=== PATIENT | male | born 1955 | race Caucasian/White ===

== ENCOUNTER 2022-04-09 23:41 | Emergency (ER) | payer MEDICARE, OTHER ==
[~2022-04-09] VITALS: Ht 177.8 cm; Wt 77.3 kg
[2022-04-10 01:00] VITALS: BP 138/83
[2022-04-10] MEDS ORDERED: AMOX-117 PO (02:44)
[2022-04-10] MEDS ORDERED: amox tr/potassium clavulanate 875/125mg TAB PO ONE (02:45)
== END 2022-04-10 03:02 | disposition home or self-care (01) ==
LOC: ER 23:42
DX: K64.9 Unspecified hemorrhoids (principal); K57.92 Diverticulitis of intestine, part unspecified, without perforation or abscess without bleeding; Z72.89 Other problems related to lifestyle; Z79.899 Other long term (current) drug therapy
CPT/HCPCS: 99283

== ENCOUNTER 2024-10-26 10:21 | Emergency (ER) | payer MEDICARE ==
[~2024-10-26] VITALS: Ht 175.3 cm; Wt 78.4 kg
[2024-10-26 10:23] VITALS: BP 133/77; PULSE 62; O2SAT 98
--- NOTE | 2024-10-26 10:28 | Physician Documentation ---
History of Present Illness Stated Complaint: FACIAL DROOP Primary Medical Doctor: Gurpreet Pepper [facility] The patient is a 69-year-old gentleman that presents to the emergency department for evaluation of left-sided facial droop present since yesterday morning between 10 30 and 11:00 a.m. patient reports that he was at his doctor's office yesterday morning having an ultrasound of his scrotum when he 1st noticed the symptoms. Patient reports that he was told by the radiologist and the staff at that time to report to the emergency department, he did not and instead drove to his mother's house last night. Patient reports that due to his symptoms persisting through this morning he decided to report to the emergency department for evaluation. Patient reports he has a history of bipolar, denies high blood pressure cardiac issues diabetes at this time and does not take blood thinners. Medication Reconciliation Allergies: Coded Allergies: No Known Allergies (Unverified , 10/26/24) Past Medical History Past Medical History: No Pertinent History Past Surgical History: no surgical history Alcohol Use: Occasionally Drug Use: none Lives In: Home Review of Systems ROS As stated above in the HPI, otherwise all systems are reviewed and negative. Physical Exam Physical Exam VITALS: Reviewed and as above. GENERAL: Alert, no apparent distress. HEENT: Normocephalic, atraumatic, PERRL, EOMI, dry mucosa, no erythema RESPIRATORY: Lungs clear, normal breath sounds, no respiratory distress. CHEST: No accessory muscle use, no retractions CV: Regular rate, rhythm, no edema, no murmur, No: JVD GI: Soft, non-tender, bowels sounds present, no rebound, guarding, or rigidity BACK: No CVA tenderness, or swelling MUSCULOSKELETAL No deformities, no edema SKIN: Warm and dry, no rash NEURO: Oriented x4, motor or sensory deficit to the extremities, left-sided facial droop with eyebrow involvement noted PSYCH: Normal mood and affect, no agitation Medical Decision Making Findings This patient presents a pronounced left sided facial droop likely secondary to Carney Palsey. Considered alternate etiologies of the patients symptoms including infectious processes, severe metabolic derangements or electrolyte abnormalities, ischemia/ACS, heart failure, and intracranial/central processes but think these are unlikely given the history and physical exam. Differential Dx:Considerations: Include: AAA, Angina/DE, Aortic dissection, Appendicitis, Bowel obstruction, Cholangitis, Cholelithasis, Constipation, Diverticular disease, Esophageal rupture, Esophagitis, Gastritis/PUD, Gastroenteritis, GI hemorrhage, Hernia, Hepatitis, Inflammatory BD, Ischemic bowel, Pancreatitis, Porphyria, Testicular torsion, Trauma, intraabdominal, Urinary obstruction, Urinary tract infection, Urolithiasis, Other Departure Disposition: 01 HOME / SELF CARE / HOMELESS Impression: Primary Impression: Numbness of face Additional Impression: Hinojosa's palsy Discharge Instructions: Hinojosa's Palsy, Adult Additional Instructions: This patient presents a pronounced left sided facial droop likely secondary to Carney Palsey. Considered alternate etiologies of the patients symptoms including infectious processes, severe metabolic derangements or electrolyte abnormalities, ischemia/ACS, heart failure, and intracranial/central processes but think these are unlikely given the history and physical exam. Patient has been provided with 1st dose of prednisone acyclovir lubricating eyedrops and a patch. Patient will follow up with primary care provider if there is any worsening of his current symptoms or failure to progress over the next week to 10 days. Patient will return to the emergency department if he has any significant worsening of his symptoms numbness tingling in any other area of his body or extremities or any of the other concerning symptoms that we discussed here in the emergency department today. Referrals: NO PRIMARY CARE PROVIDER (PCP) Prescriptions Acyclovir* (Zovirax*) 800 Mg Tablet 400 MG PO 5XD for 10 Days, #50 TAB Prov: SWAPNIL BEDOYA [facility] 10/26/24 Prednisone* (Prednisone*) 20 Mg Tablet 3 TAB PO DAILY for 5 Days, #15 TAB Prov: SWAPNIL BEDOYAP 10/26/24 Education Educated: Patient Educated regarding: diagnosis, treatment, need for follow up SWAPNIL BEDOYA [facility] Oct 26, 2024 10:28
[2024-10-26 10:34] VITALS: RESP 16
[2024-10-26] MEDS: cycloSPORINE 0.05% ophthalmic emulsion EACHEYE SCH (11:09)
[2024-10-26] MEDS ORDERED: ACYC-129 PO (11:41)
[2024-10-26] MEDS ORDERED: PRED20TA PO (11:41)
[2024-10-26 11:45] VITALS: TEMP 98.2
== END 2024-10-26 11:46 | disposition home or self-care (01) ==
LOC: ER 10:21
DX: G51.0 Bell's palsy (principal)
CPT/HCPCS: 99283; J7512; A6410